=== PATIENT | female | born 1990 | race Caucasian/White ===

== ENCOUNTER → 2021-03-25 | Outpatient (CLI) | payer BC ==
[~2021-03-25] MED LIST: IOHEXOL 300 MG/ML 50 ML (OMNIPAQUE 300) VIAL IV ONE
--- NOTE | 2021-03-25 16:32 | Diagnostic Imaging Report ---
INDICATION: Female infertility. Fluoroscopy was provided for Dr. Jossie Garcia for performance of hysterosalpingogram. Hysterosalpingography catheter was placed into the endometrial canal and 5 mL Omnipaque contrast was injected under fluoroscopic observation. A total of 30 seconds of fluoroscopic time was utilized. The images demonstrate contrast within the endometrial canal. There is free spill of contrast from bilateral fimbrial ends. IMPRESSION: Bilateral fallopian tube patency. Dictated by: Dictated on workstation # [id number]
== END ==
LOC: RAD 13:55
PROVIDERS: ATTEND Obstetrics & Gynecology
DX: N97.9 Female infertility, unspecified (principal)
CPT/HCPCS: 58340; 74740